=== PATIENT | female | born 1975 | race Caucasian/White ===

== ENCOUNTER 2016-06-15 10:11 | Outpatient (CLI) ==
[2015-04-25 04:19] VITALS: BMI 21.2
--- NOTE | 2016-06-15 10:59 | DI ---
EXAM: Two-view chest radiograph. HISTORY: Tuberculosis screen. COMPARISON: None TECHNIQUE: PA and lateral radiographs of the chest were obtained. FINDINGS: The lungs are well aerated and clear. There is no focal consolidation to suggest pneumon ia or pulmonary edema. No pleural effusion or pneumothorax is identified. The cardiomediastinal silhouette is within normal limits. Locoregional osseous structures demonstrate no acute abnormality. IMPRESSION: No acute cardiopulmonary abnormality.
== END 2016-06-15 10:12 | disposition home or self-care (01) ==
LOC: RAD 10:11
PROVIDERS: ATTEND Physician Assistant
DX: Z11.1 Encounter for screening for respiratory tuberculosis (principal)

== ENCOUNTER 2016-09-11 10:10 | Outpatient (CLI) ==
[2015-04-25 04:19] VITALS: BMI 21.2
--- NOTE | 2016-09-11 11:01 | US ---
EXAM: Ultrasound thyroid. HISTORY: Hypothyroidism. COMPARISON: None available. TECHNIQUE: Ke[place]-scale and color Doppler images. FINDINGS: The right lobe of the thyroid measures 5.6 x 1.9 x 1.3 cm. There is heterogeneous echogenicity witho ut discrete nodule. The thyroid isthmus measures 0.2 cm. The left lobe of the thyroid measures 4.7 x 1.8 x 1.4 cm. There is heterogeneous echogenicity witho ut discrete nodule. IMPRESSION: Heterogeneous thyroid gland without discrete nodule.
== END 2016-09-11 10:11 | disposition home or self-care (01) ==
LOC: RAD 10:10
PROVIDERS: ATTEND Physician Assistant
DX: E03.9 Hypothyroidism, unspecified (principal)

== ENCOUNTER 2016-12-09 09:50 | Outpatient (CLI) ==
[2015-04-25 04:19] VITALS: BMI 21.2
--- NOTE | 2016-12-09 10:30 | CT ---
EXAM: CT Abdomen without contrast. CT Pelvis without contrast. HISTORY: Acute abdominal pain. COMPARISON: None available. TECHNIQUE: Multiple axial images of the abdomen and pelvis were obtained without intravenous contras t. Images were reformatted in the coronal plane. FINDINGS: Please note that evaluation of the abdominal and pelvic structures is limited due to lack of intravenous contrast. The lung bases are clear. No acute osseous abnormality identified. The liver, gallbladder, pancreas, spleen, and adrenal glands demonstrate normal contour. Nonobstruct ing bilateral renal calculi are present, punctate on the right measuring 0.2 cm on the left. No hydr onephrosis identified. The bowel is normal in course and caliber without evidence for obstruction or inflammatory process. The appendix is normal. Uterus is not seen. Urinary bladder is unremarkable. No free fluid or free air identified. Atherosclerotic calcifications present in the aorta and common iliac arteries, grea ter than expected for the patient's age. IMPRESSION: 1. No acute abnormality within the abdomen or pelvis. 2. Nonobstructive bilateral nephrolithiasis. 3. Atherosclerosis.
== END 2016-12-09 09:51 | disposition home or self-care (01) ==
LOC: RAD 09:50
PROVIDERS: ATTEND Physician Assistant
DX: R10.2 Pelvic and perineal pain (principal); B19.20 Unspecified viral hepatitis C without hepatic coma

== ENCOUNTER 2016-12-21 10:26 | Outpatient (CLI) ==
[2015-04-25 04:19] VITALS: BMI 21.2
[2016-12-21 10:40] LABS: BASOPHILS % (AUTO) 0.7 % (0.0-3.0); EOSINOPHILS # (AUTO) 0.2 K/ul (0.0-0.7); EOSINOPHILS % (AUTO) 4.2 % (0.0-7.0); HEMATOCRIT 41.7 % (37.0-47.0); HEMOGLOBIN 14.1 g/dl (12.0-16.0); IMMATURE GRANULOCYTE % (AUTO) 0.7 % (0.0-5.0); LYMPHOCYTES # (AUTO) 1.9 K/uL (0.60-3.4); LYMPHOCYTES % (AUTO) 33.3 (10.0-50.0); MEAN CORPUSCULAR HEMOGLOBIN 32.2 pg (27.0-31.0); MEAN CORPUSCULAR HGB CONC 33.8 (31.8-35.4); MEAN CORPUSCULAR VOLUME 95.2 fl (81.0-99.0); MONOCYTES # (AUTO) 0.4 K/uL (0.4-2.0); MONOCYTES % (AUTO) 7.7 (0-10); NEUTROPHILS % (AUTO) 53.4; PLATELET COUNT 248 10^3/uL (140-440); RED BLOOD COUNT 4.38 10^6/ul (4.20-5.40); WHITE BLOOD COUNT 5.68 K/ul (4.6-10.2)
[2016-12-21 11:00] LABS: ALBUMIN 3.6 g/dL (3.4-5.0); ALBUMIN/GLOBULIN RATIO 0.97; ANION GAP 10.5; BILIRUBIN,TOTAL 0.51 mg/dL (0.00-1.20); BUN/CREATININE RATIO 9.58; CALCIUM 9.8 mg/dL (8.2-10.2); CREATININE 0.73 mg/dL (0.60-1.30); POTASSIUM 4.5 mmol/L (3.5-5.10); TOTAL PROTEIN 7.3 g/dL (6.4-8.2)
--- NOTE | 2016-12-21 11:30 | CT ---
EXAM: CT Abdomen with contrast. CT Pelvis with contrast. HISTORY: Right lower quadrant pain. COMPARISON: MRI 12/17/2016. CT 12/09/2016. TECHNIQUE: Multiple axial images of the abdomen and pelvis were obtained following intravenous admin istration of 75 mL of Omnipaque 350, low osmolar. Images were reformatted in the coronal plane. FINDINGS: Lung bases are clear. No acute osseous abnormality detected. A 1.4 cm low density posterior right hepatic lobe lesion on axial image 22 is stable. The gallbladde r, pancreas, spleen, and adrenal glands are unremarkable. There is symmetric renal enhancement witho ut hydronephrosis. The bowel is normal in course and caliber without evidence for obstruction or inflammatory process. The appendix is normal. Uterus is absent. Urinary bladder is unremarkable. No free fluid, free air or lymphadenopathy identified. Fat-containing umbilical/periumbilical hernias noted. Atherosclerot ic calcification again seen. Benign subcutaneous calcifications seen in the back. Since the prior s tudy, there has been no significant interval change. IMPRESSION: No acute abnormality within the abdomen or pelvis.
== END 2016-12-21 10:27 | disposition home or self-care (01) ==
LOC: RAD 10:26
PROVIDERS: ATTEND Physician Assistant
DX: R10.31 Right lower quadrant pain (principal)
CPT/HCPCS: 36415; 80053; 85025

== ENCOUNTER 2017-04-05 11:00 | Outpatient (CLI) ==
[2015-04-25 04:19] VITALS: BMI 21.2
== END 2017-04-05 11:01 | disposition home or self-care (01) ==
LOC: LAB 11:00
PROVIDERS: ATTEND Physician Assistant
DX: E03.9 Hypothyroidism, unspecified (principal); B18.2 Chronic viral hepatitis C
CPT/HCPCS: 36415; 80076; 84443

== ENCOUNTER 2017-04-24 19:30 | Outpatient (CLI) ==
[2015-04-25 04:19] VITALS: BMI 21.2
== END 2017-04-24 19:31 | disposition short-term general hospital (02) ==
LOC: AMBL 19:30
PROVIDERS: ATTEND Internal Medicine Geriatric Medicine
DX: F22 Delusional disorders (principal); R44.0 Auditory hallucinations

== ENCOUNTER 2017-08-09 07:32 | Emergency (ER) | payer OTHER ==
[2017-08-09 08:03] VITALS: BP 139/89; TEMP 97.4; BMI 29.4
--- NOTE | 2017-08-09 12:00 | ED.PDOC ---
General ED Provider: Dr. 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[employer]) Primary Care Provider: SAWYER PEREZ Nursing and Triage Documentation Reviewed and Agree: Yes Does patient meet sepsis criteria?: Yes If yes, has appropriate treatment been initiated?: No System Inflammatory Response Syndrome: Not Applicable Sepsis Protocol: For patient's 13 years and over: Temp is 96.8 and below OR 101 and greater Pulse >90 BPM Resp >20/minute Acutely Altered Mental Status Are patient's symptoms suggestive of a new infection, such as: -Pneumonia -Skin, Soft Tissue -Endocarditis -UTI -Bone, Joint Infection -Implantable Device -Acute Abdominal Infection -Wound Infection -Meningitis -Blood Stream Catheter Infection -Unknown Psychological Complaint Exam - Psychiatric Complaint/Exam Patient Complains Of: Present: Other (DOES NOT HEAR VOICE BUT HAS DELUSIONS OF PARANIA THAT SOME FORCES ABOUT TO HARM HER ) Onset/Duration: UNCERTAIN ONSET Symptoms Are: Still present Timing: Constant Initial Severity: Moderate Current Severity: Moderate Character: Present: Fearful, Anxious, Frustrated Aggravating: Reports: None Associated Signs And Symptoms: Reports: Confused, Paranoid behavior, Sleep disturbance, Appetite change. Denies: Hostile Related History: Denies: Suicidal thoughts, Suicidal plan, Suicidal gestures, Homicidal thoughts, Homicidal plan, Homicidal gestures, Prior attempts, Recent stressors, Drug ingestion (ADMITTS TO METH ABUSE ) Completed Suicide Risk Factors: None Patient Accompanied By: Police Patient In Custody Of Police: Yes Social Withdrawal Present: Yes Social Isolation Present: Yes Prior Suicide Attempt: No Injury From Prior Suicide Attempt: No Related Surgical History: Reports: None Patient Uncooperative For Exam: No Mood: Present: Paranoid, Agitated, Anxious Appearance: Present: Clean Thought Process: Present: Illogical Insight: Present: Limited Memory: Intact Judgement: Impaired Danger To Others: No (NOT WHILE IN THE DEPT ) Patient Medically Stable For: Psych evaluation Differential Diagnoses: Anxiety, Acute Psychosis Review of Systems - Review Of Systems Constitutional: Reports: No symptoms Eyes: Reports: No symptoms Ears, Nose, Mouth, Throat: Reports: No symptoms Respiratory: Reports: No symptoms Cardiac: Reports: No symptoms GI: Reports: No symptoms : Reports: No symptoms Musculoskeletal: Reports: No symptoms Skin: Reports: No symptoms Neurological: Reports: Cognitive dysfunction Endocrine: Reports: No symptoms Hematologic/Lymphatic: Reports: No symptoms All Other Systems: Reviewed and Negative Past Medical History - Past Medical History Previously Healthy: Yes Endocrine: Reports: None Cardiovascular: Reports: None Respiratory: Reports: None Hematological: Reports: None Gastrointestinal: Reports: None Genitourinary: Reports: None Neuro/Psych: Reports: Anxiety, Depression, Bipolar Disorder Musculoskeletal: Reports: None Cancer: Reports: None Last Menstrual Period: 3 years ago - Surgical History General Surgical History: Reports: Hysterectomy, , Tonsillectomy, Adenoidectomy - Family History Family History: Reports: Unknown - Social History Smoking Status: Current every day smoker Hx Substance Use: No Alcohol Screening: None - Immunizations Tetanus Shot up to Date: Yes Physical Exam - Physical Exam Appearance: Well-appearing, No pain distress, Well-nourished Eyes: AKUA, EOMI, Conjunctiva clear ENT: Ears normal, Nose normal, Oropharynx normal Respiratory: Airway patent, Breath sounds clear, Breath sounds equal, Respirations nonlabored Cardiovascular: RRR, Pulses normal, No rub, No murmur GI/: Soft, Nontender, No masses, Bowel sounds normal, No Organomegaly Musculoskeletal: Normal strength, ROM intact, No edema, No calf tenderness Skin: Warm, Dry, Normal color Neurological: Sensation intact, Motor intact, Reflexes intact, Cranial nerves intact, Alert, Oriented Psychiatric: Affect appropriate, Mood appropriate Critical Care Note - Critical Care Note Total Time (mins): 0 Course - Course Hematology/Chemistry: 08/09/17 08:00 08/09/17 08:00 Orders, Labs, Meds: Lab Review 08/09/17 08/09/17 08/09/17 08:00 08:00 08:25 WBC 8.40 RBC 4.20 Hgb 13.7 Hct 39.6 MCV 94.3 MCH 32.6 H MCHC 34.6 RDW Coeff of Deja 13.1 Plt Count 294 Immature Gran % (Auto) 0.6 Neut % (Auto) 55.8 Lymph % (Auto) 32.3 [place] % (Auto) 7.4 Eos % (Auto) 3.3 Baso % (Auto) 0.6 Immature Gran # (Auto) 0.1 Neut # (Auto) 4.7 Lymph # (Auto) 2.7 [place] # (Auto) 0.6 Eos # (Auto) 0.3 Baso # (Auto) 0.1 Sodium 139 Potassium 3.2 L Chloride 105 Carbon Dioxide 23 Anion Gap 14.2 BUN 19 H Creatinine 0.85 Estimated GFR (MDRD) 73.00 BUN/Creatinine Ratio 22.35 Glucose 103 Calcium 10.0 Total Bilirubin 0.6 AST 62 H ALT 82 H Alkaline Phosphatase 68 Total Protein 7.8 Albumin 3.9 Globulin 3.9 Albumin/Globulin Ratio 1.00 Urine Color Urine Clarity Urine pH Ur Specific [place] Urine Protein Urine Glucose (UA) Urine Ketones Urine Blood Urine Nitrite Urine Bilirubin Urine Urobilinogen Ur Leukocyte Esterase Urine Microscopic WBC Ur Squamous Epith Cells Urine Bacteria Salicylate Level mg/dL < 5.0 Urine Opiates Screen Negative Ur Oxycodone Screen Negative Urine Methadone Screen Negative Ur Propoxyphene Screen Negative Acetaminophen < 3 L Ur Barbiturates Screen Negative U Tricyclic Antidepress Negative Ur Phencyclidine Scrn Negative Ur Amphetamine Screen Positive U Methamphetamines Scrn Positive U Benzodiazepines Scrn Positive Urine Cocaine Screen Negative U Cannabinoids Screen Positive Plasma/Serum Alcohol < 10.0 08/09/17 08:25 WBC RBC Hgb Hct MCV MCH MCHC RDW Coeff of Deja Plt Count Immature Gran % (Auto) Neut % (Auto) Lymph % (Auto) [place] % (Auto) Eos % (Auto) Baso % (Auto) Immature Gran # (Auto) Neut # (Auto) Lymph # (Auto) [place] # (Auto) Eos # (Auto) Baso # (Auto) Sodium Potassium Chloride Carbon Dioxide Anion Gap BUN Creatinine Estimated GFR (MDRD) BUN/Creatinine Ratio Glucose Calcium Total Bilirubin AST ALT Alkaline Phosphatase Total Protein Albumin Globulin Albumin/Globulin Ratio Urine Color Yellow Urine Clarity Cloudy Urine pH 5.5 Ur Specific [place] >=1.030 Urine Protein 2+ Urine Glucose (UA) Negative Urine Ketones Trace Urine Blood Negative Urine Nitrite Negative Urine Bilirubin 2+ Urine Urobilinogen 1.0 Ur Leukocyte Esterase Trace Urine Microscopic WBC 0-2 Ur Squamous Epith Cells 2-5 Urine Bacteria 1+ Salicylate Level mg/dL Urine Opiates Screen Ur Oxycodone Screen Urine Methadone Screen Ur Propoxyphene Screen Acetaminophen Ur Barbiturates Screen U Tricyclic Antidepress Ur Phencyclidine Scrn Ur Amphetamine Screen U Methamphetamines Scrn U Benzodiazepines Scrn Urine Cocaine Screen U Cannabinoids Screen Plasma/Serum Alcohol Orders Category Date Time Status EKG-(ED ONLY) Stat CARDIO 08/09/17 08:01 Completed ED POLICE OR [employer] APPLIED ONCE EMERGENCY 08/09/17 08:01 Active Mental Health Consult [ED MENTAL HEALTH CONSULT] .ONCE EMERGENCY 08/09/17 08: 31 Active ACETAMINOPHEN Stat LAB 08/09/17 08:00 Completed BLOOD ALCOHOL Stat LAB 08/09/17 08:00 Completed CBC W/ AUTO DIFF Stat LAB 08/09/17 08:00 Completed COMPREHENSIVE METABOLIC PANEL Stat LAB 08/09/17 08:00 Completed DRUG SCREEN, URINE, RAPID Stat LAB 08/09/17 08:25 Completed SALICYLATE Stat LAB 08/09/17 08:00 Completed URINALYSIS C & S IF INDICATED Stat LAB 08/08/17 08:33 Completed URINE CULTURE Stat LAB 08/09/17 08:25 Received Vital Signs: Temp Pulse Resp BP Pulse Ox 08/09/17 07:33 97.4 F L 102 H 18 139/89 96 Departure - Departure Time of Disposition: 12:03 Disposition: TSF SHORT-TRM HOSP Discharge Problem: Amphetamine abuse, Anxiety Instructions: Methamphetamine Abuse (ED) Condition: Good Pt referred to PMD for follow-up: Yes IPMP verified?: No Additional Instructions: Please call your Family Physician as soon as possible to schedule a follow-up appointment.Please call your Family Physician as soon as possible to schedule a follow-up appointment.Please call your Family Physician as soon as possible to schedule a follow-up appointment. Allergies/Adverse Reactions: Allergies No Known Allergies Allergy (Unverified 01/02/15 20:32) Home Medications: Ambulatory Orders Levothyroxine Sodium 100 mcg PO DAILY 12/08/16 Disposition Discussed With: Patient
== END 2017-08-09 13:13 | disposition short-term general hospital (02) ==
LOC: ED 07:32
DX: F15.10 Other stimulant abuse, uncomplicated (principal); F41.9 Anxiety disorder, unspecified; R41.82 Altered mental status, unspecified; F17.210 Nicotine dependence, cigarettes, uncomplicated
CPT/HCPCS: 36415; 80053; 80306; 80307; 81001; 85025; 87086; 93005; 93010; 99285

== ENCOUNTER 2018-02-25 14:09 | Outpatient (CLI) ==
[2018-01-11 14:57] VITALS: BMI 31.5
--- NOTE | 2018-02-25 16:55 | MRI ---
EXAM: MRI lumbar spine without IV contrast. DATE: 02/25/2018. HISTORY: Compression fracture. Lumbar back pain. Fall 2 weeks ago. TECHNIQUE: Sagittal and axial T1W and T2W sequences of the lumbar spine along with sagittal IR and c oronal T2W sequences were obtained using 1.2 Marta magnet. No IV contrast. COMPARISON: LS spine series 01/26/2018. MRI L-spine 07/17/2014 CT abdomen/pelvis 12/21/2016. MRI a bdomen 12/17/2016. FINDINGS: There are five [id number] lumbar vertebra. No lumbar scoliosis is evident. Mild ant erior wedge configuration of the L1 vertebral body is new, with mild IR hyperintensity / T1W dark sig nal in the superior to the L1 body and approximately 30% anterior vertebral body height loss. No ret ropulsed fragment. No other lumbar fracture, osseous malignancy, or pars interarticularis defect is identified. A 2 mm anterolisthesis of L5 relative to S1 is noted. T2W/T1W bone marrow signal is het erogeneous due to areas of fatty infiltration. Lumbar intervertebral discs are normal in height. No anterior or posterior longitudinal ligament tear is detected. Interspinous ligaments are intact. P araspinal musculature is symmetric bilaterally. No acute sacral fracture or stress reaction is evide nt. Patchy areas of T2W/T1W bright signal within the sacral ala and iliac bones are consistent with fatty infiltration. There is no acute sacroiliitis. Conus medullaris terminates at L1. Visible spi nal cord is normal. No retroperitoneal lymphadenopathy, paraspinal mass, or aortic aneurysm is detected. Visible portion s of the spleen, adrenal glands, and kidneys reveal no abnormality. No bowel obstruction or neoplasm is apparent. Right lobe liver is greater than 16.6 cm in length. A T2W mildly bright, 12 x 8 mm fo cus in the right lobe liver on coronal image #5 is not fully characterized, but is similar in size to July 2014. This lesion corresponds with benign hemangioma on the previous abdominal MRI.. Segmental analysis: T11-12: Normal. T12-L1: Normal. L1-2: Small right foraminal disc protrusion (3 mm AP x 9 mm transverse) causes mild right foraminal narrowing. No central canal stenosis. L2-3: Normal. L3-4: Minor concentric disc bulge, superimposed left foraminal disc protrusion (2.1 mm AP x 16 mm tr ansverse) and minor facet arthropathy cause minor right foraminal narrowing, and moderate left forami nal stenosis. Left L3 nerve root contacts disc bulge at the foramen. No central canal stenosis. L4-5: Small concentric disc bulge, mild facet arthropathy, and mild ligamentum flavum hypertrophy ca use mild central canal stenosis, mild/moderate right foraminal stenosis, and moderate /marked left fo raminal stenosis. Left L4 nerve root contacts the disc bulge at the foramen. L5-S1: Minor anterolisthesis of L5, pseudodisc bulge, and mild facet arthropathy cause mild central c anal stenosis mild/moderate right foraminal stenosis, and moderate narrowing at the opening to the le ft foramen. IMPRESSIONS: 1. L-spine mild facet arthropathy and minor DDD. 2. Mild central canal stenoses at L4-5 and L5-S1. 3. Multilevel lumbar foraminal stenoses. Left L3 and left L4 nerve roots contact disc bulges near t he foramen, and may be sources for pain/radiculopathy. 4. Bone marrow fatty infiltration - recommend bone densitometry to confirm / exclude osteopenia. 5. Reidel's lobe liver variant vs hepatomegaly. 6. Right lobe liver cavernous hemangioma (12 x 8 mm).
== END 2018-02-25 14:10 | disposition home or self-care (01) ==
LOC: RAD 14:09
PROVIDERS: ATTEND Physician Assistant
DX: M48.56XS Collapsed vertebra, not elsewhere classified, lumbar region, sequela of fracture (principal)

== ENCOUNTER 2018-03-04 13:15 | Outpatient (CLI) ==
[2018-01-11 14:57] VITALS: BMI 31.5
--- NOTE | 2018-03-04 16:18 | DEXA ---
EXAM: Bone Densitometry DEXA HISTORY: Compression fracture lumbar spine COMPARISON: None FINDINGS: DEXA scan of the lumbar spine was performed. Quality of the study is good. Bone mineral density is 1.074 grams per square centimeter. T-score is negative 0.9. Z-score is negative 1.4. T-score L2 kamari tebral body is negative 1.8 and T score L4 vertebral body is negative 1.3 DEXA scan right and left hip was performed. Quality of the study is good. Bone mineral density mean total is 0.883 grams per square centimeter. T-score is negative 1.1. Z-score is negative 0.9. IMPRESSION: 1. Lumbar spine: Normal bone marrow density. L2 and L4 vertebral bodies demonstrate osteopenia 2. Right and left hip: Osteopenia 3. 10 year risk for major osteoporotic fracture is 5.1% and for hip fracture is 0.7%. Reference Values according to World Health Organization criteria: T score greater than -1 is normal T score -1 to -2.5 is osteopenia T score less than -2.5 is osteoporosis.
== END 2018-03-04 13:16 | disposition home or self-care (01) ==
LOC: RAD 13:15
PROVIDERS: ATTEND Physician Assistant
DX: M48.56XS Collapsed vertebra, not elsewhere classified, lumbar region, sequela of fracture (principal)

== ENCOUNTER 2018-04-15 13:38 | Emergency (ER) ==
[2018-04-15 13:45] VITALS: BP 124/84; TEMP 97.4; BMI 31.8
--- NOTE | 2018-04-15 14:35 | US ---
EXAM: ULTRASOUND LOWER EXTREMITY VENOUS DOPPLER EXAM HISTORY: Leg pain. FINDINGS: Left lower extremity venous Doppler exam. Real time parikh-scale, Doppler spectral analysis and color-flow Doppler imaging performed. The veins targeted for evaluation include the common femo ral, greater saphenous, profundus, femoral, popliteal, peroneal, anterior tibial and posterior tibial . The evaluated veins demonstrated normal spontaneous flow and compression without evidence of thr ombosis. IMPRESSION: No venous thrombosis identified within the areas evaluated.
--- NOTE | 2018-04-15 14:42 | ED.PDOC ---
General ED Provider: Dr. BELLA STERN Chief Complaint: Extremity Swelling/Pain Stated Complaint: left leg, hip pain no trauma Time Seen by Physician: 13:30 (see n with nurse at all time no injury) Mode of Arrival: Wheelchair Information Source: Patient, Family Exam Limitations: No limitations Primary Care Provider: SAWYER PEREZ Nursing and Triage Documentation Reviewed and Agree: Yes Does patient meet sepsis criteria?: No System Inflammatory Response Syndrome: Not Applicable Sepsis Protocol: For patient's 13 years and over: Temp is 96.8 and below OR 101 and greater Pulse >90 BPM Resp >20/minute Acutely Altered Mental Status Are patient's symptoms suggestive of a new infection, such as: -Pneumonia -Skin, Soft Tissue -Endocarditis -UTI -Bone, Joint Infection -Implantable Device -Acute Abdominal Infection -Wound Infection -Meningitis -Blood Stream Catheter Infection -Unknown Musculoskeletal Complaint Exam - Hip/Pelvis Complaint/Exam Location of Pain: Reports: Left, Hip, Groin, Pelvis Mechanism of Injury: Reports: No known trauma Onset/Duration: 3 days Symptoms Are: Still present Initial Severity: Mild Current Severity: Mild Location: Reports: Discrete Character: Reports: Aching Aggravating: Reports: None Alleviating: Reports: None Associated Signs and Symptoms: Reports: Swelling. Denies: Redness, Bruising, Fever, Weakness, Dizziness, Syncope, Abdominal pain, Knee pain Related History: Reports: Similar episode Septic Arthritis Risk Factors: Reports: None Related Surgical History: Reports: None Pelvis Palpation: Stable Hip/Pelvis Findings: Absent: Extremity shortened, Swelling, Ecchymosis, Erythema , Warmth Tenderness: Absent: Right, Left, PSIS, ASIS, Greater Trochanter, Pubis, Ischium Differential Diagnoses: Sprain, Strain Review of Systems - Review Of Systems Constitutional: Reports: No symptoms Eyes: Reports: No symptoms Ears, Nose, Mouth, Throat: Reports: No symptoms Respiratory: Reports: No symptoms Cardiac: Reports: No symptoms GI: Reports: No symptoms : Reports: No symptoms Musculoskeletal: Reports: Joint pain (left hip) Skin: Reports: No symptoms Neurological: Reports: No symptoms Endocrine: Reports: No symptoms Hematologic/Lymphatic: Reports: No symptoms All Other Systems: Reviewed and Negative Past Medical History - Past Medical History Previously Healthy: Yes Endocrine: Reports: None Cardiovascular: Reports: None Respiratory: Reports: None Hematological: Reports: None Gastrointestinal: Reports: None Genitourinary: Reports: None Neuro/Psych: Reports: Anxiety, Depression, Bipolar Disorder Musculoskeletal: Reports: None Cancer: Reports: None Last Menstrual Period: hysterectomy - Surgical History General Surgical History: Reports: Hysterectomy, , Tonsillectomy, Adenoidectomy - Family History Family History: Reports: Unknown - Social History Smoking Status: Current every day smoker, Light tobacco smoker Hx Substance Use: No Alcohol Screening: None Physical Exam - Physical Exam Appearance: Well-appearing, No pain distress, Well-nourished Eyes: AKUA, EOMI, Conjunctiva clear ENT: Ears normal, Nose normal, Oropharynx normal Respiratory: Airway patent, Breath sounds clear, Breath sounds equal, Respirations nonlabored Cardiovascular: RRR, Pulses normal, No rub, No murmur GI/: Soft, Nontender, No masses, Bowel sounds normal, No Organomegaly Musculoskeletal: Normal strength, ROM intact, No edema, No calf tenderness Skin: Warm, Dry, Normal color Neurological: Sensation intact, Motor intact, Reflexes intact, Cranial nerves intact, Alert, Oriented Psychiatric: Affect appropriate, Mood appropriate Interpretation - Radiology Interpretation Radiology Interpretation By: Radiologist Radiology Results: Positive (noDVT) Critical Care Note - Critical Care Note Total Time (mins): 0 Course - Course Orders, Labs, Meds: Orders Category Date Time Status CT PELVIS W/O CONTRAST Stat RADS 04/15/18 13:58 Taken U/S VENOUS SCAN LT LEG Stat RADS 04/15/18 13:59 Completed Vital Signs: Temp Pulse Resp BP Pulse Ox 04/15/18 13:39 97.4 F L 80 16 124/84 98 Departure - Departure Time of Disposition: 15:00 Disposition: HOME SELF-CARE Discharge Problem: Leg pain, left Instructions: Leg Pain (ED) Condition: Good Pt referred to PMD for follow-up: Yes IPMP verified?: No Additional Instructions: Please call your Family Physician as soon as possible to schedule a follow-up appointment. Prescriptions: Hydrocodone/Acetaminophen [[place] 5-325 Tablet] 1 each PO Q6HR PRN #10 tablet PRN Reason: PAIN Allergies/Adverse Reactions: Allergies No Known Allergies Allergy (Verified 04/15/18 13:46) Home Medications: Ambulatory Orders Benztropine Mesylate 0.5 mg PO BID 01/11/18 Fluoxetine HCl 40 mg PO DAILY 01/11/18 Levothyroxine Sodium 75 mcg PO DAILY 01/11/18 Paliperidone Palmitate [Invega Sustenna] 156 mg IM MONTHLY 01/11/18 Valacyclovir HCl [Valacyclovir] 500 mg PO DAILY 01/11/18 Hydrocodone/Acetaminophen [[place] 5-325 Tablet] 1 each PO Q6HR PRN #10 tablet 09/26
--- NOTE | 2018-04-15 14:53 | CT ---
EXAM: CT pelvis without contrast HISTORY: Fall with pain in the tail bone and left hip. COMPARISON: CT abdomen pelvis 12/21/2016 TECHNIQUE: Serial axial images of the pelvis were obtained without contrast. These were viewed in m ultiple planes. FINDINGS: The osseous structures demonstrate no cortical irregularity or displaced fracture. The sac rum and left hip demonstrate no acute osseous abnormality. The colon and small bowel in the pelvis a re unremarkable. There is mild atherosclerotic disease. Urinary bladder is partially distended. Th e soft tissues are unremarkable. IMPRESSION: No acute abnormality or fracture of the sacrum or left hip.
== END 2018-04-15 15:30 | disposition home or self-care (01) ==
LOC: ED 13:38
DX: M79.605 Pain in left leg (principal); M25.552 Pain in left hip; M79.89 Other specified soft tissue disorders; F17.210 Nicotine dependence, cigarettes, uncomplicated
CPT/HCPCS: 99282

== ENCOUNTER 2018-04-16 23:15 | Outpatient (CLI) ==
[2018-04-15 13:45] VITALS: BMI 31.8
== END 2018-04-16 23:34 | disposition short-term general hospital (02) ==
LOC: AMBL 23:15
PROVIDERS: ATTEND Emergency Medicine
DX: S01.112A Laceration without foreign body of left eyelid and periocular area, initial encounter (principal); R51 Headache; V19.9XXA Pedal cyclist (driver) (passenger) injured in unspecified traffic accident, initial encounter

== ENCOUNTER 2018-05-04 08:53 | Outpatient (RCR) ==
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
== END 2018-05-08 23:59 ==
PROVIDERS: ATTEND Orthopaedic Surgery
DX: S72.002D Fracture of unspecified part of neck of left femur, subsequent encounter for closed fracture with routine healing (principal); M25.552 Pain in left hip; M25.652 Stiffness of left hip, not elsewhere classified; R26.9 Unspecified abnormalities of gait and mobility; Z98.890 Other specified postprocedural states

== ENCOUNTER 2018-05-10 15:37 | Outpatient (RCR) ==
--- NOTE | 2018-05-16 14:40 | RS.OPPTDN ---
Subjective Date of Note: 05/10/18 Visit #: 2 Number of visits approved by Insurance: pending Date of Evaluation: 05/04/18 Payer Source: Medicaid ([facility]) Treatment Diagnosis: Left hip pain, left hip stiffness, gait abnormality, s/p fracture left hip Current Subjective/complaints:: Patient enters clinic in w/c,transfers with NWB L LE. *Precautions: LATEX ALLERGY Pain Assessment - Pain Description Pain Location: L hip Pain Description: Dull, Aching Current Pain Intensity: 5-6 - Heat/Cryotherapy Treatment: Cryotherapy (15 mins. to L hip after ex) Interventions - Exercise/Activities/Manual Therapy Exercises/Activities: 40 mins. total 3/15 PROM to AAROM ,including ankle pumps, QS,GS , heelslides,SAQ's,hip abd/add,W/C to bed and bed to W/C transfers ,NWB on L LE. Total minutes of Exercise: 40 Manual Therapy: NA Total minutes of Manual Therapy: 0 HOME EXERCISE PROGRAM: supine heel slides, hip abd/add, glut sets, standing HS curls - Charges Timed Code Treatment Minutes: 40 Total Treatment Time: 55 Procedures billed for this date of service:: ex 3,cp Assessment: Patient reports increased aching as exercises progress,fatigues easily.She is guarded with all motions today ,but this improves as the exercises progress.She is able to maintain the NWB status on the L LE during transfers,requires CGA for safety. Patient Education: Education of diagnosis, Body/Joint mechanics, Home Exercise Program, Home Safety, Activity Modification, Education of Plan of Care Short Term Goals Goal #1: Patient independent in HEP. Goal to be met by: 05/18/18 Progress towards Goal:: Progressing Goal #2: Left hip AROM WFL's with minimal discomfort. Goal to be met by: 05/18/18 Goal #3: Left hip strength grossly 4/5 throughout. Goal to be met by: 05/18/18 Film Examiner Goals Goal #1: Pt knows HEP and to continue ex's to maintain level of function at D/c. Goal to be met by: 06/13/18 Goal #2: Score on LE Functional scale improved to 48/80. Goal to be met by: 06/13/18 Goal #3: Pt to ambulate with WB on LLE per surgeon's discretion, I with good safety. Goal to be met by: 06/13/18 Goal #4: Pt able to perform all selfcare and light ADL's independently. Goal to be met by: 06/13/18 Plan Dates of Assisted Goals: 06/13/18 Expiration date of current Insurance Approval:: pending PLAN: Cont. skilled PT to strengthen the L LE ,progress to weight bearing when the DrMarjan allows.
--- NOTE | 2018-05-16 14:46 | RS.CXNS ---
Date of scheduled appointment: 05/13/18 Type: No Show
--- NOTE | 2018-05-19 15:42 | RS.CXNS ---
Date of scheduled appointment: 05/19/18 Type: No Show Reason for Cancel/NS: unknown
--- NOTE | 2018-05-24 16:13 | RS.QUICKDC ---
Discharge from PT Date of Discharge: 05/24/18 Number of Visits: 2 Reason for Discharge: Patient came for eval. plus one session .Patent had 2no show/no calls,then was to be here today ,called 20 mins. after appt. time .It was explained to patient 's Mother that the D/C plan is today due to inconsistencies with doing therapy,no progress made.
== END 2018-06-07 23:59 ==
PROVIDERS: ATTEND Orthopaedic Surgery
DX: S72.002D Fracture of unspecified part of neck of left femur, subsequent encounter for closed fracture with routine healing (principal); M25.552 Pain in left hip; M25.652 Stiffness of left hip, not elsewhere classified; R26.9 Unspecified abnormalities of gait and mobility; Z98.890 Other specified postprocedural states

== ENCOUNTER 2018-09-26 10:50 | Outpatient (CLI) | END 2018-09-26 10:51 | disposition home or self-care (01) | LOC: CAR 10:50 | PROVIDERS: ATTEND Nurse Practitioner Family | DX: F25.9 Schizoaffective disorder, unspecified (principal) | CPT/HCPCS: 93005; 93010 ==